=== PATIENT | female | born 1950 | race Caucasian/White ===

== ENCOUNTER 2020-08-10 10:30 | Outpatient (CLI) | payer MEDICARE ==
--- NOTE | 2020-08-10 11:51 | MRI ---
MRI cervical spine noncontrast: 08/10/2020 HISTORY: ICD-10: "M 54.12 acute cervical radiculopathy" in 69-year-old female COMPARISON: None FINDINGS: Cervical spinal cord is normal in size and signal. No major subluxation. There is reversal of curvatu re, with apex of kyphosis at C4-5. Modic type I bone marrow edema at C4 and C5, and to a lesser degree at inferior aspect of C6. C1-2: No central stenosis. C2-3: Mild right and moderate left facet DJD. No high-grade central or high-grade neural foraminal st enosis. Disc space maintained. C3-4: Disc space maintained. No high-grade right facet DJD. Severe left facet degenerative hypertroph y. Minimal grade 1 anterolisthesis of C3 on C4. Small to moderate size left uncinate process osteophytes. No right neural foraminal stenosis. Moderate left neural foraminal stenosis. C4-5: Moderate to severe disc space narrowing. This is the fulcrum of focal kyphosis. There is a broa d-based central and bilateral paracentral disc herniation that significantly indents the ventral aspect of the spinal cord. Mild ligamentum flavum thickening. Moderate to severe central spinal canal stenosis. Small to moderate-sized bilateral uncinate process osteophytes. Moderate to severe bilateral neural foraminal stenosis. Moderate right facet DJD. Mild left facet DJD. C5-6: Mild to moderate disc space narrowing. Broad-based shallow disc protrusion. Mild ligamentum fla vum thickening. Moderate to severe central spinal canal stenosis. Moderate bilateral neural foraminal stenosis. Moderate right and mild to moderate left facet DJD. C6-7: Mild to moderate disc space narrowing. Central and bilateral paracentral focal small disc protr usion indents ventral aspect of spinal cord. Moderate ligamentum flavum thickening indents dorsal aspect of spinal cord. Severe central spinal canal stenosis. Moderate size bilateral uncinate process osteophytes. Moderate to severe bilateral neural foraminal stenosis, greatest at the proximal portions of the neural foramina. Mild bilateral facet DJD. C7-T1: Disc space maintained. No high-grade central spinal canal stenosis. Moderate bilateral facet D GAEL. Moderate size bilateral uncinate process osteophytes. Moderate to severe bilateral neural foraminal stenosis. IMPRESSION: 1.) Cord impingement and high-grade central spinal canal stenosis at C4-5 and C6-7. 2) high-grade central spinal canal stenosis at C5-6. 3) multilevel high-grade neural foraminal stenosis bilaterally. 4) cervical spondylosis including several levels of high-grade facet osteoarthrosis, and moderate deg enerative disc disease
== END 2020-08-10 10:31 | disposition home or self-care (01) ==
LOC: BICMRI 10:30
PROVIDERS: ATTEND Anesthesiology Pain Medicine
DX: M50.10 Cervical disc disorder with radiculopathy, unspecified cervical region (principal); M25.80 Other specified joint disorders, unspecified joint; M48.02 Spinal stenosis, cervical region; M47.22 Other spondylosis with radiculopathy, cervical region
CPT/HCPCS: 72141